=== PATIENT | female | born 1980 | race Hispanic/Latino ===

== ENCOUNTER → 2022-01-22 | Outpatient (CLI) | payer MEDICAID | END | disposition home or self-care (01) | LOC: RAH 10:43 | PROVIDERS: ATTEND Internal Medicine Gastroenterology | DX: R11.0 Nausea (principal) | CPT/HCPCS: 78264; A9541 ==

== ENCOUNTER → 2022-04-21 | Outpatient (CLI) | payer MEDICAID | END | disposition home or self-care (01) | LOC: OIH 13:27 | PROVIDERS: ATTEND Internal Medicine Cardiovascular Disease | DX: R00.2 Palpitations (principal) | CPT/HCPCS: 93306 ==